=== PATIENT | male | born 1985 ===

== ENCOUNTER 2022-06-05 07:06 | Emergency (ER) | payer MEDICAID ==
[~2022-06-05] VITALS: Ht 172.7 cm; Wt 120.0 kg
[2022-06-05 07:14] VITALS: BP 124/76
[2022-06-05] MEDS ORDERED: LIDOcaine 1% W/epiNEPHrine 1:100,000 20ml vial SQ ONE (09:20)
[2022-06-05] MEDS ORDERED: LIDOCAINE 2%/EPI 1:100,000 inj. Multi-dose 20 ML VIAL SQ ONE (09:25)
[2022-06-05] MEDS ORDERED: SULF1TAB49 PO ×3 (09:44→10:06)
[2022-06-05] MEDS ORDERED: sulfamethoxazole/trimethoprim DS (800/160mg) tablet PO ONE (09:45)
== END 2022-06-05 14:08 | disposition home or self-care (01) ==
LOC: ER 07:06
DX: L03.012 Cellulitis of left finger (principal); L02.512 Cutaneous abscess of left hand; Z91.013 Allergy to seafood; Z88.8 Allergy status to other drugs, medicaments and biological substances; Z79.899 Other long term (current) drug therapy
CPT/HCPCS: 10060; 99283; A6449